=== PATIENT | male | born 1945 | race Caucasian/White ===

== ENCOUNTER 2016-09-03 14:50 | Emergency (ER) | payer OTHER ==
[2016-09-03 14:59] VITALS: O2SAT 96
[2016-09-03] MEDS ORDERED: NS 1,000 ML IV ONE (15:30)
[2016-09-03 15:35] LABS: % IMMATURE GRANULYOCYTES 0.6 % (0.0-1.1); ABSOLUTE IMMATURE GRANULOCYTES 0.04 10^3/uL (0.00-0.10); ADD DIFF? NO; ADD MORPH? NO; ADD SCAN? NO; ATYPICAL LYMPHOCYTE FLAG 0 (0-99); FRAGMENT RBC FLAG 0 (0-99); HEMATOCRIT 45.6 % (40.0-51.0); HEMOGLOBIN 15.5 g/dL (13.7-17.5); LEFT SHIFT FLG 0 (0-99); LIPEMIA HEMOLYSIS FLAG 90 (0-99); MEAN CELL VOLUME 94.2 fL (81.5-99.8); MEAN PLATELET VOLUME 9.9 fL (8.7-11.7); PLATELET CLUMPS FLAG 0 (0-99); PLATELET COUNT 175 10^3/uL (150-400); RED BLOOD CELL COUNT 4.84 10^6/uL (4.40-6.38); RED CELL DISTRIBUTION WIDTH 12.1 % (11.5-15.2)
[2016-09-03 15:52] LABS: ALANINE AMINOTRANSFERASE 44 IU/L (21-72); ALBUMIN 4.2 g/dL (3.5-5.0); ALKALINE PHOSPHATASE 83 IU/L (38-126); ANION GAP 11 mEq/L (8-16); ASPARTATE AMINOTRANSFERASE 32 IU/L (17-59); BILIRUBIN,TOTAL 1.1 mg/dL (0.1-1.4); BILIRUBIN-CONJUGATED 0.3 mg/dL (0.0-0.5); BILIRUBIN-UNCONJUGATED 0.8 mg/dL (0.0-1.1); CALCIUM 9.6 mg/dL (8.5-10.4); CARBON DIOXIDE 24 mEq/l (22-31); CHLORIDE 107 mEq/L (97-110); CREATININE 1.2 mg/dL (0.7-1.3); GLOMERULAR FILTRATION RATE > 60; GLUCOSE 104 mg/dL (70-100); POTASSIUM 4.2 mEq/L (3.5-5.2); SODIUM 142 mEq/L (134-144); TOTAL PROTEIN 7.3 g/dL (6.3-8.2)
--- NOTE | 2016-09-03 16:52 | CT ---
CT Scan of the Urinary Tract (Abdomen and Pelvis Without Contrast) Clinical Indications: Right flank pain. Technique: Multidetector helical CT imaging was performed from the lung bases to the urinary bladder without contrast. Axial images are obtained at 1.25 mm thickness. Dose reduction techniques were ut ilized. Findings: Abdomen: There is a punctate nonobstructing left renal calculus. There is right hydronephrosis with prominent dilatation of the right ureter throughout its course to the level of the ureterovesical ju nction where there is a 6.2 x 3.4 mm distal left ureteral calculus. No right renal calculus is seen. The imaged noncontrast portions of the liver, spleen, gallbladder, pancreas and adrenals are unremar kable. The aorta tapers normally. The lung bases are clear. Pelvis: Bladder contour is normal. The appendix appears normal. Pelvic phleboliths are noted. Minima l prostatic calcifications are also seen. The prostate does invaginate the bladder floor. Colonic diverticulosis is noted without diverticulitis. Calcification is seen in iliac arteries as we ll as in a nondilated aorta. There is no free fluid seen. Spinal degenerative changes are seen. Impression: 1. 6.2 x 3.4 mm distal right ureteral calculus with associated moderate right hydronephrosis. 2. Diverticulosis without diverticulitis. 3. See above report for additional findings. Results called and discussed with Soco Pate MD at 09/03/2016 16:48 Attention: This CT examination is specifically designed to evaluate patients who are clinically susp ected of having acute obstructive uropathy. This examination does not use radiographic contrast, and as such, provides only a limited evaluation of the abdomen, pelvis and retroperitoneum.
[2016-09-03 16:53] LABS: COLOR YELLOW; LEUKOCYTE ESTERASE,URINE TRACE (NEGATIVE); NITRITE,URINE NEGATIVE (NEGATIVE)
[2016-09-03 17:05] LABS: MUCUS TRACE /lpf (NONE-1+); RBC,URINE 50-182 /hpf (0-3); WBC,URINE 25-50 /hpf (0-3)
[2016-09-03] MEDS ORDERED: TAMSULOSIN HCL 0.4 MG CAP PO ONE (17:15)
[2016-09-03] MEDS ORDERED: KETOROLAC 30 MG/1 ML SDV IVP ONE (17:38)
--- NOTE | 2016-09-03 17:53 | EDPHY ---
H & P Time Seen by Provider: 09/03/16 15:23 HPI/ROS: HPI Right flank pain. To 70-year-old male by private vehicle. He complains of right-sided flank pain with radiation into the right lower quadrant onset yesterday. He describes it lower now in his right lower quadrant area. He describes it as deep aching the comes on in waves. He denies any gross hematuria. No problems urinating. He has not had a fever. No nausea or vomiting. ROS: Constitutional: No fever, no chills. No weakness. Eyes: No discharge. No changes in vision. ENT: No sore throat. No nasal congestion or rhinorrhea. Respiratory: No cough. No shortness of breath. Cardiac: No chest pain, no palpitations. Gastrointestinal: As above, no vomiting, no diarrhea. Genitourinary: No hematuria. No dysuria or increased frequency with urination. Musculoskeletal: As above. No neck pain. No myalgias or arthralgias. Skin: No rashes. Neurological: No headache. No focal weakness or altered sensation. Past medical history: Coronary artery disease with stents. He does take Plavix. Social history: Here by himself. He is planning on traveling to [place] tomorrow morning. Physical Exam: General Appearance: Alert, no distress. This patient is responding to questions appropriately and in full sentences. This patient appears well- hydrated and well-nourished. Eyes: Pupils equal and round no pallor or injection. No lid edema, erythema or injection. Respiratory: There are no retractions, lungs are clear to auscultation with good air movement bilaterally. Cardiovascular: Regular rate and rhythm. No murmur. Gastrointestinal: Abdomen is soft and nontender, no masses, bowel sounds normal. No focal tenderness at McBurney's point. No Warner sign. Neurological: Motor sensory function is grossly intact. Cranial nerves are normal. Gait is normal. Skin: Warm and dry, no rashes. Musculoskeletal: Mild right-sided CVA tenderness on palpation. No left-sided CVA tenderness. Extremities are symmetrical. All joints range without pain or impingement. Psychiatric: No agitation. No depression. Database: EKG: Imaging: CT scan of abdomen and pelvis without contrast: Significant for a 6.2 mm x 3.4 mm distal right-sided ureteral stone at the UVJ with hydronephrosis. The appendix is well visualized and is normal. No other significant pathology. Results were discussed with staff radiologist Dr. Ismael Peraza. Procedures: Emergency department course: After my initial evaluation an IV was placed. He was placed on a monitor. He was started on IV normal saline with 1 L to be given over 1 hour. Presentation is consistent with probable ureterolithiasis. I discussed CT imaging. He consented. He is declining any pain medication at this time. 5:30 p.m., patient re-evaluated. Resting comfortably. Results of CT scan and diagnosis of distal right-sided ureteral stone discussed. He states that his his pain is a little worse than it was initially. He was given 30 mg of IV Toradol. He does not have a contraindication NSAIDs and his creatinine is normal. Results of his blood work and urinalysis were discussed. 6:00 p.m., patient re-evaluated. Pain well controlled at this time. He does feel comfortable going home. He was given Flomax 0.4 mg in the emergency department. Urology follow-up was discussed with him. Follow-up and return to emergency department precautions reviewed. All of his questions were answered. I will prescribe him both high-dose ibuprofen which he will start taking tomorrow morning as needed. He will also be prescribed Vicodin. All of his questions were answered. He was discharged from the emergency department in good condition. Differential Diagnosis: The differential diagnosis on this patient includes but is not limited to ureterolithiasis, appendicitis, cholecystitis. Testicular torsion, colitis, diverticulitis, pyelonephritis unlikely. This represents a partial list of diagnoses considered. These considerations are based on history, physical exam , past history, reassessment and diagnostic testing. Smoking Status: Never smoked Constitutional: Initial Vital Signs Temperature (C) 36.4 C 09/03/16 14:56 Heart Rate 58 L 09/03/16 14:56 Respiratory Rate 20 09/03/16 14:56 Blood Pressure 114/66 09/03/16 14:56 O2 Sat (%) 96 09/03/16 14:56 O2 Delivery Mode Room Air Allergies/Adverse Reactions: No Known Allergies Allergy (Verified 02/02/12 11:59) Home Medications: Medication Instructions Recorded Aspirin [Aspirin 81mg (OTC)] 81 mg PO DAILY 02/02/12 Clopidogrel Bisulfate [Plavix (RX)] 75 mg PO DAILY 02/02/12 Glucosamine Sulfate 2Kcl 1,000 mg PO 02/02/12 [Glucosamine] Herbals/Supplements -Info Only 1 each PO AD 02/02/12 Multivitamins [Multivitamin (OTC)] 1 each PO DAILY 02/02/12 Niacin [Niaspan 750 mg] 1,500 mg PO HS 02/02/12 [place]-3 Fatty Acids [Fish Oil 1000 1,000 mg PO DAILY 02/02/12 mg (OTC)] Simvastatin [Zocor 40 mg (RX)] 40 mg PO DAILY18 02/02/12 Hydrocodone/APAP 5/325 [[place] 1 - 2 tab PO Q4-6PRN PRN #14 tab 09/03/16 5/325 (*)] Tamsulosin HCl [Flomax 0.4 MG (*)] 0.4 mg PO DAILY #4 cap 09/03/16 Medical Decision Making - Data Points Laboratory Results: Laboratory Results 09/03/16 15:21 09/03/16 15:21 09/03/16 09/03/16 16:30 15:21 WBC 6.76 10^3/uL (3.80-9.50) RBC 4.84 10^6/uL (4.40-6.38) Hgb 15.5 g/dL (13.7-17.5) Hct 45.6 % (40.0-51.0) MCV 94.2 fL (81.5-99.8) MCH 32.0 pg (27.9-34.1) MCHC 34.0 g/dL (32.4-36.7) RDW 12.1 % (11.5-15.2) Plt Count 175 10^3/uL (150-400) MPV 9.9 fL (8.7-11.7) Neut % (Auto) 75.6 H % (39.3-74.2) Lymph % (Auto) 15.1 % (15.0-45.0) [place] % (Auto) 7.2 % (4.5-13.0) Eos % (Auto) 0.9 % (0.6-7.6) Baso % (Auto) 0.6 % (0.3-1.7) Nucleat RBC Rel Count 0.0 % (0.0-0.2) Absolute Neuts (auto) 5.11 10^3/uL (1.70-6.50) Absolute Lymphs (auto) 1.02 10^3/uL (1.00-3.00) Absolute Monos (auto) 0.49 10^3/uL (0.30-0.80) Absolute Eos (auto) 0.06 10^3/uL (0.03-0.40) Absolute Basos (auto) 0.04 10^3/uL (0.02-0.10) Absolute Nucleated RBC 0.00 10^3/uL (0-0.01) Immature Gran % 0.6 % (0.0-1.1) Immature Gran # 0.04 10^3/uL (0.00-0.10) Sodium 142 mEq/L (134-144) Potassium 4.2 mEq/L (3.5-5.2) Chloride 107 mEq/L (97-110) Carbon Dioxide 24 mEq/l (22-31) Anion Gap 11 mEq/L (8-16) BUN 21 mg/dL (7-23) Creatinine 1.2 mg/dL (0.7-1.3) Estimated GFR > 60 Glucose 104 H mg/dL (70-100) Calcium 9.6 mg/dL (8.5-10.4) Total Bilirubin 1.1 mg/dL (0.1-1.4) Conjugated Bilirubin 0.3 mg/dL (0.0-0.5) Unconjugated Bilirubin 0.8 mg/dL (0.0-1.1) AST 32 IU/L (17-59) ALT 44 IU/L (21-72) Alkaline Phosphatase 83 IU/L (38-126) Total Protein 7.3 g/dL (6.3-8.2) Albumin 4.2 g/dL (3.5-5.0) Lipase 208.0 IU/L (23-300) Urine Color YELLOW Urine Appearance CLEAR Urine pH 5.0 (5.0-7.5) Ur Specific [place] 1.023 (1.002-1.030) Urine Protein NEGATIVE (NEGATIVE) Urine Ketones 2+ H (NEGATIVE) Urine Blood 2+ H (NEGATIVE) Urine Nitrate NEGATIVE (NEGATIVE) Urine Bilirubin NEGATIVE (NEGATIVE) Urine Urobilinogen NEGATIVE EU (0.2-1.0) Ur Leukocyte Esterase TRACE H (NEGATIVE) Urine RBC 50-182 H /hpf (0-3) Urine WBC 25-50 H /hpf (0-3) Ur Epithelial Cells TRACE /lpf (NONE-1+) Hyaline Casts 1-5 /lpf (0-1) Urine Mucus TRACE /lpf (NONE-1+) Ur Culture Indicated? INDICATED H (NI) Urine Glucose NEGATIVE (NEGATIVE) Medications Given: Discontinued Medications Sodium Chloride (Ns) 1,000 mls @ 0 mls/hr IV ONCE ONE PRN Reason: Wide Open Stop: 09/03/16 15:31 Last Admin: 09/03/16 15:30 Dose: 1,000 mls Tamsulosin HCl (Flomax) 0.4 mg PO EDNOW ONE Stop: 09/03/16 17:16 Last Admin: 09/03/16 17:41 Dose: 0.4 mg Departure - Departure Disposition: Home, Routine, Self-Care Clinical Impression: Kidney stone on right side Condition: Good Instructions: Kidney Stones (ED), Flank Pain (ED) Additional Instructions: Read and follow provided instructions. Follow-up with Urology, Dr. Saul Sweeney or 1 of his partners for re-evaluation when you return home from [place]. Ibuprofen dosin mg every 6 hours with meals for the next 3 days only. Take only as needed. Start taking this medication as needed tomorrow morning. [place]/Percocet dosin-2 every 4-[address] for [address] not drive on this medication. Take medication as prescribed. Return to the emergency department for worsening pain, vomiting, fever or other serious concerns. Referrals: Saul Sweeney MD [Medical Doctor] - As per Instructions Prescriptions: Tamsulosin HCl [Flomax 0.4 MG (*)] 0.4 mg PO DAILY #4 cap Hydrocodone/APAP 5/325 [[place] 5/325 (*)] 1 - 2 tab PO Q4-6PRN PRN #14 tab PRN Reason: Pain, Moderate
[2016-09-03] MEDS ORDERED: HYDROCOD/APAP 5/325 PREPACK#6 BTL TAKEHOME ONE (17:58)
[2016-09-03 18:28] VITALS: BP 123/64; PULSE 69; RESP 18; TEMP 98.4
== END 2016-09-03 18:23 | disposition home or self-care (01) ==
DX: N20.0 Calculus of kidney (principal); I25.10 Atherosclerotic heart disease of native coronary artery without angina pectoris; Z95.5 Presence of coronary angioplasty implant and graft; Z79.82 Long term (current) use of aspirin
CPT/HCPCS: 74176; 96361; 96374; 99285; J1885

== ENCOUNTER → 2017-08-17 | Outpatient (CLI) | payer OTHER | LOC: BHLMT 14:00 | PROVIDERS: ATTEND Internal Medicine Cardiovascular Disease | DX: R01.1 Cardiac murmur, unspecified (principal); I25.10 Atherosclerotic heart disease of native coronary artery without angina pectoris; I10 Essential (primary) hypertension | CPT/HCPCS: 93306-PO ==